=== PATIENT | female | born 1950 | race African-American/Black ===

== ENCOUNTER 2022-12-06 10:31 | Day surgery (SDC) | payer BC ==
[2022-12-02 11:33] VITALS: BMI 27.3
[2022-12-06 10:46] VITALS: PULSE 74
[2022-12-06 13:25] VITALS: RESP 17; TEMP 97.1
[2022-12-06 13:26] VITALS: BP 136/74
== END 2022-12-06 12:30 | disposition home or self-care (01) ==
LOC: FASU-ENDO 10:31
PROVIDERS: ATTEND Internal Medicine Gastroenterology
PROC: 0DBN8ZX Excision of Sigmoid Colon, Via Natural or Artificial Opening Endoscopic, Diagnostic (ICD-10-PCS; 2022-12-06)
PROC: 0DBC8ZX Excision of Ileocecal Valve, Via Natural or Artificial Opening Endoscopic, Diagnostic (ICD-10-PCS; 2022-12-06)
PROC: 0DBH8ZX Excision of Cecum, Via Natural or Artificial Opening Endoscopic, Diagnostic (ICD-10-PCS; principal; 2022-12-06 11:47)
DX: Z12.11 Encounter for screening for malignant neoplasm of colon (principal); D12.7 Benign neoplasm of rectosigmoid junction; D13.39 Benign neoplasm of other parts of small intestine; K63.5 Polyp of colon; K57.30 Diverticulosis of large intestine without perforation or abscess without bleeding
CPT/HCPCS: 88305-TC